=== PATIENT | female | born 1965 | race African-American/Black ===

== ENCOUNTER 2016-12-25 15:17 | Emergency (ER) | payer OTHER ==
--- NOTE | ~2016-12-25 | CR111 ---
[facility] A Service of [facility] RADIOLOGY TEXT RESULTS PATIENT: PITER DAVALOS LOCATION: SED : 63 UNIT #: [id number] AGE: [address]: GUILLERMO MCCOLLUM SEX: F ORDER DR: [id number] [place] [id number] E MR#: [id number] Acc #: [id number] NAME: PITER DAVALOS : 1965 SEX: F STUDY DATE/TIME: 12/25/2016 16:35 UNIT: SED ROOM: STUDY DESCRIPTION: CR Finger 2 View 3rd Rt Attending Physician: Guillermo Mccollum Aprn Ordering Physician: Guillermo Mccollum Aprn Primary Care Physician: Brittney Jamison M.D. MEDICAL IMAGING REPORT This report is preliminary unless electronic signature is present. EXAM Right third finger, 3 views INDICATIONS Finger injury today. Laceration. COMPARISON No comparisons. FINDINGS There is a fracture of the tuft of the distal phalanx of the third finger. Associated soft tissue swelling and laceration. IMPRESSION Fracture of the tuft of the distal phalanx of the third finger with associated soft tissue swelling and laceration. Dictated by... Ian Wagner M.D. THIS IS AN ELECTRONICALLY VERIFIED REPORT Ian Wagner M.D. at 12/27/2016 7:24 AM JOAQUIN/harish TD: 12/25/2016 22:51 JOB #: [id number] MEDICAL IMAGING REPORT Page 1 of 1
[~2016-12-25 15:17] MED LIST: AMLODIPINE BESY10 MG PO; APAP325 MG PO; ASPIRIN EC81 M1 PO; ASPIRIN81 M2 PO; ASPIRIN81 MG PO; BENTYL10 MG PO; BENZONATATE PO; CARVEDILOL25 MG PO; CARVEDILOL6.25 MG PO; CLARITHROMYCIN500 MG PO; CLOPIDOGREL BIS75 MG PO; COREG12.5 MG PO; COREG6.25 MG PO; DELTASONE20 MG PO; DOC-Q-LACE100 MG PO; DOCU SOFT100 M1 PO; HYDRALAZINE HCL25 MG PO; HYDRALAZINE HCL50 MG PO; HYDROCHLOROTHIA25 MG PO; ISOSORBIDE MONO20 M1 PO; K-DUR20 ME1 PO; LEVAQUIN PO; LIORESAL10 MG PO; LIPITOR20 MG PO; LIPITOR40 MG DOB; LISINOPRIL PO; LISINOPRIL10 MG PO; MEDROL DOSEPAK4 MG PO; METAXALONE800 MG PO; MORGIDOX100 MG PO; NAPROXEN PO; NITROGLYGERIN0.4 MG SL; NITROSTAT0.4 MG SL; NORVASC PO; NORVASC10 MG PO; PHENERGAN25 M1 PO; PRAVACHOL80 MG PO; PRAVASTATIN SOD40 MG PO; PRAVASTATIN SOD80 MG PO; PRILOSEC PO; PRILOSEC20 M1 PO; RANITIDINE HCL150 M1 PO; SERTRALINE HCL50 MG PO; SPIRONOLAC1 TAB 25/2 PO; SYMBICORT INH; ZESTRIL10 MG PO; ZESTRIL40 MG PO; ZITHROMAX500 MG PO
== END 2016-12-25 18:01 | disposition home or self-care (01) ==
LOC: SED 15:17
DX: S62.632A Displaced fracture of distal phalanx of right middle finger, initial encounter for closed fracture (principal); S67.192A Crushing injury of right middle finger, initial encounter; F17.210 Nicotine dependence, cigarettes, uncomplicated; Z23 Encounter for immunization; X58.XXXA Exposure to other specified factors, initial encounter; Y92.9 Unspecified place or not applicable
CPT/HCPCS: 29130; 73140; 90471; 90715; 99283

== ENCOUNTER 2017-01-04 23:27 | Inpatient (IN) | payer OTHER ==
--- NOTE | ~2017-01-04 | CO ---
Unit #: [id number] #: [id number] Patient: PITER VIDAL [id number] [address] [place], [place] [address] [id number] I MR#: [id number] NAME: PITER VIDAL ROOM: 304 Age: 51 Sex: F Admission Date: 01/05/2017 : 1965 Attending Physician: Jossie Marie M.D. Primary Care Physician: Brittney Jamison M.D. Consultation Date: 01/06/2017 CONSULTATION REPORT REASON FOR CONSULTATION Nonsustained ventricular tachycardia and poorly controlled hypertension. HISTORY OF PRESENT ILLNESS This is a 51-year-old female, who is known to our practice, sees Dr. Falcon, has a history of coronary artery disease, has a 95% to 99% stenosis in the first diagonal branch of the LAD and 75% stenosis in the left circumflex of the anterior marginal branch with ejection fraction of 55%; known hypertension; COPD; asthma; continues to smoke; has left bundle-branch block on EKG, who came into the emergency room with abdominal pain, nausea, and vomiting. According to information, she has been noncompliant with taking her medication. She gets some filled at [facility] and records show that she has not picked them up since October. No chest pain or pain in her neck, bilateral jaws, shoulders, arms, or elbow. Denies any cough, fever, or chills. In the emergency room, the patient's blood pressure was found to be 165/130, heart rate was 85, respirations 18, temperature 98.6. The patient was given some IV hydralazine and given some clonidine for hypertension. She was also given some GI cocktail. Dr. Puente with GI has seen the patient and he did an EGD. It shows severe erosive esophagitis and gastritis. We will put her back on her medication. The patient, during her hospitalization on her EKG, had some frequent premature ventricular complexes in addition to had an 8-beat run of nonsustained ventricular tachycardia. Also, her blood pressures have been fairly high throughout the hospitalization. So, Cardiology has been asked to assist with evaluation and management. The patient was restarted back on her beta-allyssa. She was reported to have been taking Coreg 50 mg p.o. b.i.d. and she was started back on the Coreg 6.25 mg p.o. b.i.d. PAST MEDICAL HISTORY 1. Coronary artery disease, 12/2013. Cardiac cath showed normal left main and RCA. First diagonal branch of the LAD showed 95% to 99% stenosis; left circumflex, anterior marginal branch revealed 75% stenosis. In 2014, 2D echo, LVEF of 55% with mild mitral regurgitation. 2. Hypertension. 3. Hyperlipidemia. 4. History of left bundle-branch block on EKG. 5. COPD and asthma. 6. Obesity. 7. Nicotine abuse. 8. Noncompliance with medication. Unit #: [id number] #: [id number] Patient: PITER VIDAL PAST SURGICAL HISTORY EGD in 09/2016 that showed gastritis. Also, right upper quadrant ultrasound and HIDA scan, which both were normal. MEDICATIONS Home medication is what the patient was discharged home and has not had her prescriptions filled since 10/2016 at [facility] and they are listed: Norvasc 10 mg one tablet p.o. daily, pravastatin 80 mg p.o. at bedtime, aspirin 81 mg p.o. daily, Nitrostat 0.4 mg sublingual p.r.n. for chest pain, omeprazole 20 mg p.o. daily, Bentyl 10 mg p.o. every 8 hours, hydrochlorothiazide 25 mg p.o. daily, hydralazine 50 mg p.o. b.i.d., potassium chloride 20 mEq p.o. daily, lisinopril 40 mg p.o. daily at bedtime, carvedilol 50 mg p.o. b.i.d., Colace 100 mg p.o. b.i.d. ALLERGIES Penicillin. SOCIAL HISTORY The patient lives with her family. She continues to smoke about half to a pack of cigarettes a day. No alcohol or illicit drug abuse. FAMILY HISTORY No known coronary artery disease in her immediate family members. REVIEW OF SYSTEMS See details in HPI. PHYSICAL EXAMINATION GENERAL: Ms. Vidal is a 51-year-old female, in no acute respiratory distress. She is awake, alert, and oriented. VITAL SIGNS: Blood pressure last reading today is 159/77, her heart rate is 77, respirations 18, temperature is 98.3, O2 saturations 96% on room air. NECK: Midline. No thyromegaly or lymphadenopathy. Normal carotid upstrokes. No jugular venous distention. HEART: S1 and S2. Regular rate and rhythm. No clicks, murmurs, or rubs. LUNGS: Diminished with a few scattered rhonchi in upper airway. ABDOMEN: Obese, soft, and nontender. EXTREMITIES: Pedal pulses are palpable. No pedal edema. DIAGNOSTIC STUDIES LABORATORY RESULTS: Glucose is 167, BUN 14, creatinine 0.8, eGFR is 84.8, sodium 138, potassium 3.7, chloride 104, CO2 of 27, calcium is 9.0, magnesium 1.9, total protein 7.3, albumin 3.8, bilirubin total 0.4, AST 11, ALT 20, alkaline phosphatase is 89. Amylase is 26 with lipase 27. WBCs 9.2 and on admission, it was 12.1; hemoglobin 13.3; hematocrit 40.2; and platelets are 220. Initial cardiac enzymes; CK-MB was less than 1.0, troponin was less than 0.05, CK-MB is less than 1.0, troponin less than 0.05. IMAGING STUDIES: Chest x-ray showed stable cardiomegaly, otherwise unremarkable. CT of abdomen and pelvis showed fat stranding adjacent to the descending duodenum and transverse duodenum as well as the head and the uncinate process of the pancreas could be consistent with duodenitis versus pancreatitis, and there is a 1.7 cm density in the anterior right lower lobe, just adjacent to the major fissure and it is likely rounded Unit #: [id number] #: [id number] Patient: PITER VIDAL atelectasis. Followup CT is recommended. Cardiomegaly is noted. Hepatomegaly is noted and fluid distention of the bladder noted. CARDIOVASCULAR STUDIES: EKG shows sinus tachycardia with a first-degree AV block, left bundle-branch block, left atrial abnormality, poor R-wave progression, left ventricular hypertrophy. IMPRESSION 1. Abdominal pain, nausea, vomiting, status post esophagogastroduodenoscopy. Severe esophagitis and gastritis. 2. Nonsustained ventricular tachycardia. 3. Coronary artery disease. See details up in HPI. Last cardiac cath in 12/2013. 4. Poorly controlled hypertension, noncompliance with medication. 5. Hyperlipidemia. 6. History of left bundle-branch block on EKG. 7. Chronic obstructive pulmonary disease and asthma. 8. Obesity. 9. Nicotine abuse. 10. Noncompliance with medication. PLAN 1. Cardiology consulted because the patient had an 8-beat run of nonsustained ventricular tachycardia. 2. Yesterday, the patient's potassium was low and she is on potassium supplement. Magnesium is a little low today, is receiving IV magnesium, is on the potassium and magnesium protocol. 3. When the patient came in, her blood pressure was high and that she was restarted back on one of the medications carvedilol at a lower dose to initiate the beta-allyssa back on her regimen. So, we will increase the dose from 6.25 mg to 12.5 mg p.o. b.i.d. that will also help blood pressure and control the ventricular arrhythmias. 4. On exam, there are no signs or symptoms of acute congestive heart failure or unstable angina. Cardiac enzymes were negative. EKG does show a left bundle-branch block that is not new. 5. Encourage the patient to completely quit smoking and be compliant with her blood pressure medication. The patient is on also, in addition the carvedilol and hydralazine, lisinopril, Lipitor, aspirin and potassium supplements, and is on SCDs for DVT prophylaxis. 6. Further recommendations pending per Dr. Nj. Thank you very much for allowing us to assist in the care. Dictated by... Luis Alberto Cornell/lyubov TD: 01/06/2017 17:00 JOB #: [id number] CC: [facility] Cardiology [facility] Unit #: [id number] #: [id number] Patient: PITER VIDAL CONSULTATION REPORT Page 1 of 1 X Karmen Jo APRN CONSULTATION REPORT
--- NOTE | ~2017-01-04 | EKG ---
PATIENT: PITER DAVALOS UNIT #: [id number] Ventricular Rate: 99 BPM Atrial Rate: 99 BPM P-R Interval: 148 ms QRS Duration: 156 ms Q-T Interval: 424 ms QTC Calculation(Bezet): 544 ms P [place]: 59 degrees Calculated R [place]: -2 degrees Calculated T [place]: 131 degrees Diagnosis Line: Normal sinus rhythm Diagnosis Line: Possible Left atrial enlargement Diagnosis Line: Left bundle branch block Diagnosis Line: Abnormal ECG Diagnosis Line: No previous ECGs available Diagnosis Line: Confirmed by ONI VILLARREAL MD ([id number]) on Diagnosis Line: 01/05/2017 1:37:08 PM INTERPRETING MD: CHERELEL TRAN
--- NOTE | ~2017-01-04 | CT4 ---
[facility] A Service of [facility] RADIOLOGY TEXT RESULTS PATIENT: PITER DAVALOS LOCATION: C3A 304-01 : [birth year] UNIT #: [id number] AGE: [address]: Neisha Rutledge MD SEX: F ORDER DR: [id number] [facility] [address]. [place], [place] [address] [id number] E MR#: [id number] Acc #: [id number] NAME: PITER DAVALOS : 1965 SEX: F STUDY DATE/TIME: 01/05/2017 6:12 UNIT: ULI ROOM: STUDY DESCRIPTION: CT Abd and Pelv Wo Cont Attending Physician: Mihir Negrete M.D. Ordering Physician: Beverly Westfall M.D. Primary Care Physician: Brittney Jamison M.D. MEDICAL IMAGING REPORT This report is preliminary unless electronic signature is present EXAM CT abdomen and pelvis without IV contrast COMPARISON November 20, 2015 and October 17, 2013. INDICATION 51-year-old female with generalized abdominal pain, nausea, emesis for 2 days. History of cholelithiasis. TECHNIQUE This CT examination was performed with one or more of the following radiation dose reduction techniques: automatic exposure control, adjustment of mA and/or kV according to patient size, and iterative reconstruction. FINDINGS Axial CT imaging of the abdomen and pelvis was performed without IV contrast. Lack of IV contrast limits evaluation of adenopathy, vasculature and viscera. Small to moderate fat-containing umbilical hernia. Mild degenerative change of the pubic symphysis. No acute fractures or suspicious osseous lesions. Questionable enlarging nodular density in the anterior right lower lobe abutting the major fissure. This has somewhat of a ground-glass characteristic and its evaluation is mildly limited by motion. This may represent an area of round atelectasis and measures up to 1.7 cm. Bczh-cj-sofcirem cardiomegaly. Unenhanced liver is unremarkable aside from mild enlargement of hepatic length of 16.2 cm. The gallbladder, unenhanced pancreas, spleen, adrenal glands and kidneys are unremarkable. There is no hydronephrosis or hydroureter. No renal or ureteral calculus. There is fluid distension of the urinary bladder. Uterus appears unremarkable. No adnexal masses. No evidence of bowel obstruction. Appendix is normal. No free fluid or STS. [facility] A Service of [facility] RADIOLOGY TEXT RESULTS PATIENT: PITER DAVALOS LOCATION: C3A 304-01 : [birth year] UNIT #: [id number] AGE: [address]: Neisha Rutledge MD SEX: F ORDER DR: pneumoperitoneum. Abdominal aorta is normal in caliber. No adenopathy. There is some very mild apparent fat stranding adjacent to the head and uncinate process of the pancreas which was not appreciated previously and could reflect a mild acute pancreatitis or alternatively inflammatory change of the duodenum. Neoplastic process cannot entirely be excluded. There is a stable subcentimeter peripancreatic lymph node adjacent to the pancreatic head. IMPRESSION 1. Mild apparent fat stranding adjacent to the descending duodenum and transverse duodenum as well as the head and uncinate process of the pancreas. Differential diagnosis includes possible early acute pancreatitis and/or duodenitis. Clinical correlation recommended. Given the subtle infiltrate nature, neoplastic process cannot be excluded. Consider imaging followup in 3-6 months to document stability. This would preferably performed with IV contrast. 2. Patient appears to be developing a rounded 1.7 cm density in the anterior right lower lobe adjacent to the major fissure. This is not well evaluated due to motion and could reflect rounded atelectasis but neoplastic process again cannot be excluded. CT chest followup without IV contrast is recommended in 3 months to document stability or resolution. 3. Mild cardiomegaly. 4. Mild hepatomegaly. No evidence of cholelithiasis or acute cholecystitis on this exam. 5. Fluid distension of the urinary bladder. Dictated by... Edis Spencer M.D. THIS IS AN ELECTRONICALLY VERIFIED REPORT Edis Spencer M.D. at 01/11/2017 2:29 PM Jamar TD: 01/05/2017 07:45 JOB #: [id number] MEDICAL IMAGING REPORT Page 1 of 1 COPY
--- NOTE | ~2017-01-04 | CR72 ---
[facility] A Service of [facility] RADIOLOGY TEXT RESULTS PATIENT: PITER DAVALOS LOCATION: [facility] : 63 UNIT #: [id number] AGE: [address]: Beverly Westfall MD SEX: F ORDER DR: [id number] [facility] [address] [place], [place] [address] [id number] P MR#: [id number] Acc #: [id number] NAME: PITER DAVALOS : 1965 SEX: F STUDY DATE/TIME: 01/05/2017 2:57 UNIT: [facility] ROOM: STUDY DESCRIPTION: CR Chest Single View Portable Attending Physician: Beverly Westfall M.D. Ordering Physician: Beverly Westfall M.D. Primary Care Physician: Brittney Jamison M.D. MEDICAL IMAGING REPORT This report is preliminary unless electronic signature is present EXAM Single view chest INDICATION Chest pain for 2 days. FINDINGS Single portable AP view chest compared to 07/26/2016. Heart is mildly enlarged. Central pulmonary vasculature is within normal limits. No focal consolidation. No pleural effusion. IMPRESSION Stable cardiomegaly. Dictated by... Atif Dillard M.D. THIS IS AN ELECTRONICALLY VERIFIED REPORT Atif Dillard M.D. at 01/05/2017 4:31 AM RISSA/charlotte TD: 01/05/2017 04:13 JOB #: [id number] MEDICAL IMAGING REPORT Page 1 of 1 COPY
--- NOTE | ~2017-01-04 | OR ---
Unit #: [id number] #: [id number] Patient: PITER DAVALOS [id number] [address] [address] [id number] I MR#: [id number] NAME: PITER DAVALOS ROOM: 304 Date of Procedure: 01/05/2017 Admission Date: 01/05/2017 Surgeon: Luis Puente M.D. : 1965 Attending Physician: Jossie Marie M.D. Primary Care Physician: Brittney Jamison M.D. OPERATIVE REPORT PREOPERATIVE DIAGNOSES The patient presented with history of epigastric pain for 2 days along with nausea. In addition, she has a background history of diabetes, hypertension, and hyperlipidemia. The patient was found to have hypertensive emergency on admission. PROCEDURES PERFORMED Upper gastrointestinal endoscopy and biopsy. POSTOPERATIVE DIAGNOSES 1. The patient had grade 1 distal erosive esophagitis with erosions in Z-line and distal esophagus. 2. Prepyloric antral gastritis. This was in the form of diffuse erosive gastritis in the antral area. 3. Rest of examination up to third part of duodenum was normal. Specifically, the duodenal bulb as well as second and third part of duodenum were very carefully examined and appeared completely normal. This is in view of the fact the patient had changes of duodenitis on a CAT scan. RECOMMENDATIONS It will be pertinent to investigate the pancreas with a repeat imaging study in 3 to 4 months' time. The patient does not have any evidence of duodenal lesion. She is being started on pantoprazole 40 mg p.o. b.i.d., which can be reduced to once a day in a couple of days. SEDATION USED MAC. DESCRIPTION OF PROCEDURE Following detailed explanations of potential risks and complications of an upper endoscopy, namely perforation, bleeding, and complications related to sedation, the patient was brought to GI lab and laid in the left lateral decubitus position. Lubricated tip of the Olympus video upper endoscope was passed through bite block into the proximal esophagus under direct vision. The entire esophageal mucosa was examined. The patient was noted to have grade 1 distal erosive esophagitis. The scope was then advanced into the gastric cavity and the latter was insufflated. Mucosa of the fundus, body, and antrum examined. The patient was noted to have diffuse prepyloric antral erosions and erythema indicating antral gastritis. Pylorus was intubated with visualization of the normal duodenal bulb and second and third part of duodenum. Careful attention Unit #: [id number] #: [id number] Patient: PITER DAVALOS was focused specifically descending duodenum as well as fourth part of duodenum, which were normal. Upon withdrawal and retroflexion, incisura, cardia, and greater curve examined and biopsy obtained from the antrum for CLOtest. The scope was then withdrawn in the distal esophagus. The entire esophageal mucosa was examined all the way up to pharynx, no additional findings noted. The patient tolerated the procedure without any postprocedure complications. Dictated by... Flora Lockett/lyubov TD: 01/05/2017 23:05 JOB #: [id number] CC: Flora Ojeda M.D. OPERATIVE REPORT Page 1 of 1 X Luis Puente MD X PROCEDURE OPERATIVE NOTE
--- NOTE | ~2017-01-04 | HP ---
Unit #: [id number] #: [id number] Patient: PITER VIDAL [id number] [address] [place], [place] [address] [id number] I MR#: [id number] NAME: PITER VIDAL ROOM: 47439 Age: 51 Sex: F Admission Date: 01/05/2017 : 1965 Attending Physician: Jossie Marie M.D. Primary Care Physician: Brittney Jamison M.D. HISTORY AND PHYSICAL REVISED REPORT CHIEF COMPLAINT Abdominal pain. HISTORY OF PRESENT ILLNESS Ms. Vidal is a 51-year-old Telugu, Latvian-speaking, female who presents to the ER for above. I will note, history taking is extremely limited given the patient has received several sedating medications here in the ER and will not wake up much to provide history. Thus, history is taken after discussion with ER physician and ER notes. Patient presented to this emergency department last night with complaints of abdominal pain of approximately 2 days' duration. However, ER notes indicate that patient has chronic abdominal pain, and she has been admitted to this facility in the past for abdominal pain, most recently in September of 2016. She was complaining of epigastric and right upper quadrant pain with associated nausea. Pain was described as a burning; however, there have been no reported episodes of vomiting, fever, diarrhea, back pain or loss of appetite. It was not exacerbated or relieved by any notable factors. Patient underwent CT scan of her abdomen and pelvis revealing changes of duodenitis, and chest x-ray was unremarkable. There is a questionable right lower lobe density. Lab work was essentially unremarkable. During course of evaluation, patient also developed significant hypertension with blood pressures running in the 200s systolic, and she progressively became tachycardic throughout evaluation. Patient has been given a liter of normal saline, Zofran, Protonix, GI cocktail, hydralazine twice, clonidine, Pepcid, Benadryl, morphine and Phenergan and is now very sedated. She is being admitted due to her tachycardia and hypertension. PAST MEDICAL HISTORY 1. Gastritis. Patient underwent EGD in September of 2016 with gastritis. During that hospitalization, she also had right upper quadrant ultrasound and HIDA scan, both of which were normal. 2. Coronary artery disease. Patient had heart catheterization in 2013 revealing 90% to 95% stenosis in the LAD and 70% stenosis in the posterior branch of the circumflex. 3. Hypertension. 4. Hyperlipidemia. 5. Chronic left bundle branch block. 6. Tobaccoism. 7. Chronic hypoxic respiratory failure, maintained on 2 liters of oxygen per nasal cannula continuously. Unit #: [id number] #: [id number] Patient: PITER VIDAL 8. Asthma. 9. Obesity. 10. COPD. 11. Diabetes mellitus type 2. PAST SURGICAL HISTORY None. She did have EGD as outlined above. ALLERGIES Penicillin. HOME MEDICATIONS Home medications, per best of my reconciliation at this time, include discharge medications of Norvasc 10 mg daily, pravastatin 80 mg at bedtime, aspirin 81 mg daily, nitroglycerin 0.4 mg sublingual p.r.n. chest pain, omeprazole 20 mg daily, Bentyl 10 mg q.8 hours, Hydrochlorothiazide 25 mg p.o. daily, hydralazine 50 mg b.i.d., potassium chloride 20 mEq p.o. daily, Zestril 40 mg daily, Coreg 50 mg b.i.d., Colace 100 mg b.i.d. However, I will note this med/rec is from medications filled at [facility] in September of 2016, and patient has not filled any meds since October of 2016 at [facility]. FAMILY HISTORY Family history is reportedly negative, and patient is unable to wake up to answer of there is any additional family history. SOCIAL HISTORY Patient continues to smoke, I believe, 1 pack of cigarettes per day. She denied alcohol use in the past. I believe she is ambulatory at baseline and denied illicit drug use in the past, as well. REVIEW OF SYSTEMS Unobtainable given the patient will simply open her eyes and fall back to sleep. PHYSICAL EXAMINATION VITAL SIGNS: Temperature 98.5, blood pressure currently 157/90, pulse rate 110, respiratory rate 22, oxygen saturation 94% on 2 liters per nasal cannula. GENERAL: The patient does open her eyes when aroused to sternal rub or with pain but will not answer questions. HEENT: Pupils are equally round and reactive to light bilaterally. Anicteric sclera. No conjunctival pallor. I was, really, unable to perform an oral exam, but mucous membranes at least appear moist. NECK: Supple. No lymphadenopathy. No thyromegaly. No JVD. Increased neck diameter is noted. HEART: Regular rate and rhythm without murmur, rub or gallop. LUNGS: Diminished bilaterally. I cannot appreciate any wheezes, rhonchi or crackles, but examination, again, is limited. ABDOMEN: Abdomen is obese. It is soft. It is nontender currently. Positive bowel sounds. No appreciable hepatomegaly. EXTREMITIES: No cyanosis, clubbing or edema. Pedal pulses 2/4. SKIN: Warm, moist without rash. NEUROLOGIC: When patient did arouse, at least grossly her cranial nerves II-XII appeared intact. She did move all 4 extremities while I was trying to awaken, and Babinski is negative. Deep tendon reflexes are 2/4 in upper and lower extremities bilaterally. Gait and cerebellar function were not assessed. Unit #: [id number] #: [id number] Patient: PITER VIDAL MUSCULOSKELETAL: No significant joint abnormality noted; i.e., no erythema, no joint hypertrophy. PSYCHIATRIC: Unable to assess. GENITOURINARY: Alvarenga catheter is in place. DIAGNOSTIC STUDIES LABORATORY: Blood work done in the emergency department reveals a white blood cell count of 12.1, hemoglobin 14.1, platelet count 247,000. CMP reveals a sodium of 134, potassium 3.2, chloride 101, bicarb 26, BUN 13, creatinine 1, glucose 152. LFTs are all normal. Amylase and lipase are also normal. Urinalysis revealed 3+ protein, 5-10 WBCs, 1+ bacteria but occasional squamous cells. Troponin has been negative x2. IMAGING: Chest x-ray reveals cardiomegaly but no other acute findings. CT scan of the abdomen and pelvis without contrast - Fat stranding adjacent to the descending duodenum and transverse duodenum, as well as the head and uncinate process of the pancreas. This is consistent with duodenitis versus pancreatitis. There is a round 1.7 cm density in the anterior right lower lobe adjacent to the major fissure and is most likely rounded atelectasis. Followup CT of the chest recommended. Cardiomegaly is noted. Hepatomegaly is noted, as well, and fluid distension of the bladder is noted. CARDIOVASCULAR: EKG reveals significant left bundle branch block but is otherwise normal sinus rhythm. PVCs are noted. ASSESSMENT 1. Hypertensive urgency with questionable compliance with antihypertensive medication. 2. SIRS secondary to number 3. 3. Duodenitis with prior history of significant gastritis with questionable compliance with PPI therapy. 4. Hypokalemia. 5. Questionable urinary tract infection. 6. Chronic hypoxic respiratory failure, maintained on 2 liters of oxygen per nasal cannula continuously. 7. Known coronary artery disease, followed by Dr. [place]. 8. COPD. 9. Hyperlipidemia. 10. Tobaccoism. 11. Right lower lobe nodule, question atelectasis versus mass. 12. Obesity. 13. Diabetes mellitus type 2. The patient's hemoglobin A1c was elevated at 6.7 in September 2016. Please note, we will add Accu-Cheks and obtain diabetic education. PLAN 1. Will admit patient to inpatient status at intermediate level. 2. In regard to the patient's hypertension, I am going to reinitiate hydralazine 50 mg b.i.d., Coreg 6.25 mg b.i.d., Norvasc 10 mg daily and follow blood pressures. Will also provide hydralazine on a p.r.n. basis. 3. In regard to the patient's duodenitis, will place her on Protonix 40 mg p.o. b.i.d. I will have Dr. Puente reevaluate the patient, given she may require repeat endoscopy. I do not think this is consistent with pancreatitis, given normal lipase levels. However, I will recheck a lipase in the morning. Unit #: [id number] #: [id number] Patient: PITER VIDAL 4. Will replace potassium and check magnesium off blood in the lab. 5. Continue oxygen and titrate for sats greater than or equal to 92%. 6. Will continue home medications for coronary artery disease. This does not appear to be cardiac in origin. 7. Will reinitiate statin therapy. 8. I will follow up urine culture. I do not feel that she likely has underlying urinary tract infection and oral antibiotics can be initiated if culture is positive. 9. In regard to the patient's right lower lobe nodule, I recommend repeat CT as an outpatient in perhaps 3-6 months. However, she is at increased risk of malignancy given her tobacco use, and CT scan of the chest can be done after discussion with the patient when she is more awake. 10. Will crisis counselor regarding tobacco use when awake. ORIGINAL JOB #[id number] Dictated by Jossie Marie M.D. DELBERT/arely TD: 01/05/2017 09:24 JOB #: [id number] HISTORY AND PHYSICAL Page 1 of 1 X Jossie Marie MD X HISTORY AND PHYSICAL
--- NOTE | ~2017-01-04 | CO ---
Unit #: [id number] #: [id number] Patient: PITER VIDAL [id number] [address] [address] [id number] I MR#: [id number] NAME: PITER VIDAL ROOM: 304 Age: 51 Sex: F Admission Date: 01/05/2017 : 1965 Attending Physician: Jossie Marie M.D. Primary Care Physician: Brittney Jamison M.D. Consultation Date: 01/05/2017 CONSULTATION REPORT PRIMARY CARE PHYSICIAN Brittney Jamison M.D. REASON FOR CONSULTATION Duodenitis and upper abdominal epigastric pain. HISTORY OF PRESENT ILLNESS Ms. Vidal is a 51-year-old woman of [place]ian origin, who presents with a history of hypertensive emergency along with moderately severe epigastric pain for the past 2 days along with nausea and some vomiting. The patient says that the pain is quite intense and continuous. Upon admission, CT scan of the abdomen shows changes of duodenitis and possibly in relation to pancreatic and descending duodenum in addition to major papilla and ampullary area. PAST MEDICAL HISTORY Significant for history of hypertension, hyperlipidemia, chronic hypoxic respiratory failure maintained on 2 L nasal cannula, history of tobacco abuse, coronary artery disease. The patient has been evaluated for a possible gallbladder disease and both her ultrasound and HIDA scan have been normal. She also has history of obesity, asthma, COPD, and type 2 diabetes. PREVIOUS SURGERIES No previous abdominal surgeries. ALLERGIES Penicillin. HOME MEDICATIONS Reviewed and include the following: Norvasc, pravastatin, aspirin, nitroglycerin, omeprazole 20 mg p.o. daily, Bentyl p.r.n. abdominal pain, hydrochlorothiazide, hydralazine, potassium chloride, Zestril, Coreg, Colace. FAMILY HISTORY None of colon, pancreatic cancer, or liver disease. SOCIAL HISTORY She continues to smoke a pack of cigarette daily. Does not use any alcohol. Ambulatory. REVIEW OF SYSTEMS Detailed review of organ systems does not reveal any recent weight loss. Unit #: [id number] #: [id number] Patient: PITER VIDAL No history of fever, chills, or rigors. No history of headache, seizure, chest pain, or syncope. No history of cough, expectoration, or hemoptysis. No history of dysuria, hematuria, or pyuria. No history of focal seizures or extremity weakness. Rest of the review of organ systems is unremarkable. PHYSICAL EXAMINATION GENERAL: She is alert and oriented, and appears to be in some pain. VITAL SIGNS: Stable with a temperature of 99.7, pulse is 107 per minute and regular, respiratory rate is 20, blood pressure is 150/100, it was 182/105 in the morning and as high as 200/110 before that. As high as 215/122 before that. HEENT: She has no pallor, icterus, lymphadenopathy, or peripheral edema. CARDIOVASCULAR: Reveal normal heart sounds. No murmurs on auscultation. LUNGS: Reveal normal breath sounds with good air entry. ABDOMEN: Soft, nontender. Liver and spleen are not palpable. Bowel sounds normal. DIAGNOSTIC STUDIES LABORATORY RESULTS: Shows normal CBC and serum chemistry. The amylase and lipase are normal and LFTs are also normal. CLINICAL IMPRESSION The changes on the CT scan are may be related to underlying duodenal ulcer. Diagnostic endoscopy is in order and be scheduled little later today. The pros and cons of procedure, potential risks, and complications were discussed with the patient and she was reassured. Thank you for asking me to see this pleasant woman. I appreciate the consult. Dictated by... Flora Lockett/lyubov TD: 01/06/2017 01:32 JOB #: [id number] CC: Flora Ojeda M.D. CONSULTATION REPORT Page 1 of 1 X Luis Puente MD X CONSULTATION REPORT
--- NOTE | ~2017-01-04 | A ---
[facility] Nutrition Therapy DATE: 01/06/17 Patient: PITER DAVALOS Physician: SCARLETT Address: [address] [place] [address] Room/Bed: [address] [place] [address], Zip: [place] [address] Admit Date: 01/05/17 Date of : [birth year] Height: 5 0 Weight: 187 85 NUTRITIONAL ASSESSMENT: REASON: CONSULT FOR DM DIET EDUCATION PMH: DM, CAD, gastritis, HTN, HLD, chronic hypoxic respiratory failure, COPD, obesity Anthropometrics: Ht: 60" Wt: 85 kg BMI: 36.6 Assessment: Chart reviewed, events noted. RD spoke with the pt at bedside. There was certainly a language barrier, as the pt's first language is Georgian. Pt does speak some togolese. RD was able to explain the importance of balanced meals, consuming protein with each meal and eating more than one meal per day. Pt states that she does not like fruits or vegetables, and does not seem likely to comply with diet strategies discussed. Pt would certainly benefit from further nutritional counseling, with an business information manager if possible. Recommendations: 1. Pt to follow a heart healthy/ consistent carbohydrate diet as instructed by RD. 2. Pt requires further diet education, as there is certainly a learning barrier due to language. Recommend follow up diet education with an business information manager if possible. RD will follow up per protocol. Respectfully, LEANDRA BROOKE RD, LD Food and Nutrition[facility] Services [facility] cc: client file
--- NOTE | ~2017-01-04 | DS ---
Unit #: [id number] #: [id number] Patient: PITER DAVALOS [id number] [address] [address] [id number] I MR#: [id number] NAME: PITER DAVALOS ROOM: 304 Age: 51 Sex: F Admission Date: 01/05/2017 : 1965 Discharge Date: 01/07/2017 Attending Physician: Jossie Marie M.D. Primary Care Physician: Brittney Jamison M.D. DISCHARGE SUMMARY FINAL DIAGNOSES 1. Abdominal pain. 2. Hypertensive urgency. SECONDARY DIAGNOSES 1. Hypertension. 2. Chronic obstructive pulmonary disease. 3. Left bundle branch block. 4. Nicotine abuse. 5. History of coronary artery disease with cardiac catheterization in 2013. CONSULTS 1. Cardiology, Dr. Nj. 2. GI, Dr. Luis Puente. PROCEDURES She had an EGD, which showed gastroesophagitis and gastritis. HOSPITAL COURSE A 51-year-old [place] lady who basically presented with abdominal pain. She was seen and evaluated in the emergency room. Blood pressure was elevated. She was already on Protonix twice daily. She was seen by GI, and she had a scope, which did reveal findings of esophagitis. Dr. Luis Puente felt that CT scan findings in the duodenum were probably artifact. While the patient was being planned for discharge, she did have some runs of V tach. She was seen by cardiology who increased her Coreg to 12.5 p.o. b.i.d. Blood pressures really were markedly elevated initially on admission, and with making some adjustments, blood pressures have trended downward. Blood pressure today, the day of discharge, is 157/93. She is evaluated, suitable and stable for discharge for outpatient followup with her PCP in the next 3-5 days. On the day of discharge she is still nauseous. She did receive Zofran. Will give her some Phenergan and some Zofran orally to go home. She is evaluated and suitable and stable for discharge. Will be discharged in stable condition. MEDICATIONS ON DISCHARGE 1. Bentyl 10 mg p.o. t.i.d. for bowel cramps. 2. Coreg 25 mg p.o. b.i.d. 3. Colace 100 mg p.o. b.i.d. 4. Hydrochlorothiazide was discontinued. Unit #: [id number] #: [id number] Patient: PITER DAVALOS 5. Lipitor 20 mg at bedtime. 6. Nitroglycerin sublingual 0.4 mg as needed for chest pain. 7. Hydralazine 50 mg p.o. b.i.d. 8. Zestril 40 mg p.o. daily. 9. Aspirin 81 mg p.o. daily. 10. Omeprazole 40 mg p.o. b.i.d. 11. Potassium 20 mEq p.o. daily. DISCHARGE CONDITION She will be discharged in stable condition. NOTE: Time spent coordinating discharge was about 33 minutes. Dictated by... Flora Gerardo/marcus TD: 01/07/2017 13:35 JOB #: [id number] DISCHARGE SUMMARY Page 1 of 1 X Idania Flores MD X DISCHARGE SUMMARY
--- NOTE | ~2017-01-04 | EKG ---
PATIENT: PITER DAVALOS UNIT #: [id number] Ventricular Rate: 128 BPM Atrial Rate: 128 BPM P-R Interval: 232 ms QRS Duration: 84 ms Q-T Interval: 244 ms QTC Calculation(Bezet): 356 ms Calculated R Malmo: 38 degrees Calculated T Malmo: -92 degrees Diagnosis Line: Sinus tachycardia with 1st degree A-V block with Diagnosis Line: frequent Premature ventricular complexes Diagnosis Line: Left ventricular hypertrophy with repolarization Diagnosis Line: abnormality Diagnosis Line: Abnormal ECG Diagnosis Line: When compared with ECG of 29-SEP-2016 01:58, Diagnosis Line: Premature ventricular complexes are now Present Diagnosis Line: WA interval has increased Diagnosis Line: Vent. rate has increased BY 47 BPM Diagnosis Line: Left bundle branch block is no longer Present Diagnosis Line: Confirmed by ONI VILLARREAL MD ([id number]) on Diagnosis Line: 01/05/2017 1:37:24 PM INTERPRETING MD: CHERELLE TRAN
[2017-01-05 00:58] LABS: BASOPHIL# 0.1 X10e3 (0-0.3); BASOPHIL% 0.6 % (0-2.5); EOSINOPHIL# 0.1 X10e3 (0-0.7); EOSINOPHIL% 1.1 % (0.0-7.0); HEMATOCRIT 41.7 % (35.0-45.0); HEMOGLOBIN 14.1 gm/dL (12.0-16.0); LYMPHOCYTE# 3.4 X10e3 (1.0-3.5); LYMPHOCYTE% 27.9 % (17.0-45.0); MEAN CELL VOLUME 83.4 FL (83-96); MEAN CORPUSCULAR HEMOGLOBIN 28.2 PG (28-34); MEAN CORPUSCULAR HGB CONC 33.8 g/dL (30-36); MEAN PLATELET VOLUME 9.3 FL (6.5-11.5); MONOCYTE# 0.6 X10e3 (0-1.0); MONOCYTE% 5.1 % (3.0-12.0); NEUTROPHIL# 7.9 X10e3 (1.5-7.1); NEUTROPHIL% 65.3 % (40-75); PLATELET COUNT 247 X10e3 (140-420); RED BLOOD COUNT 5.01 X10e (3.90-5.30); RED CELL DISTRIBUTION WIDTH 14.1 % (11.0-15.5); WHITE BLOOD COUNT 12.1 X10e3 (4.0-10.5)
[2017-01-05 01:02] LABS: DIFF IND NO
[2017-01-05 01:23] LABS: ALBUMIN SERUM 3.8 g/dL (3.5-5.0); ALKALINE PHOSPHATASE 89 U/L (32-92); ALT (SGPT) 20 U/L (10-40); AMYLASE 26 U/L (0-46); AST (SGOT) 11 U/L (10-42); BILIRUBIN,TOTAL 0.4 mg/dL (0.2-2.0); BLOOD UREA NITROGEN 13 mg/dL (9-23); CALCIUM SERUM 9.6 mg/dL (8.4-10.2); CARBON DIOXIDE 26 mmol/L (22-31); CHLORIDE 101 mmol/L (100-111); GLOM FILT RATE Estimated 64.8 mL/min (>60); GLUCOSE FASTING 152 mg/dL (70-110); LIPASE 39 U/L (22-51); POTASSIUM 3.2 mmol/L (3.5-5.1); PROTEIN TOTAL SERUM 7.3 g/dL (6.0-8.3); SODIUM 134 mmol/L (135-145)
[2017-01-05 01:25] LABS: BILIRUBIN, DIRECT <0.1 mg/dL (0.0-0.2); BILIRUBIN,INDIRECT 0.3 mg/dL (0.0-0.9)
[2017-01-05 03:25] LABS: URINE SOURCE CLEAN CATCH
[2017-01-05 03:28] LABS: URINE APPEARANCE CLEAR; URINE BILIRUBIN NEG (NEG); URINE BLOOD NEG (NEG); URINE COLOR YELLOW; URINE GLUCOSE NEG (NEG); URINE KETONE NEG (NEG); URINE LEUKOCYTE ESTERASE NEG (NEG); URINE NITRATE NEG (NEG); URINE PROTEIN 3+ (NEG); URINE SPECIFIC GRAVITY 1.019 (1.003-1.035)
[2017-01-05 03:31] LABS: CULTURE INDICATED? YES; U HYALINE CASTS AUWI 0-2 /[LPF]; URBCS1 AUWI 0-2 /[HPF] (0-2); URINE BACTERIA AUWI 1+ (NEGATIVE); URINE SQUAMOUS EPITHELIAL CELL OCC /[HPF]
[2017-01-05 04:07] LABS: POC - CKMB <1.0 ng/mL (0.0-7.9); POC - TROPONIN <0.05 ng/mL (<=0.05)
[2017-01-05 05:20] LABS: POC - CKMB <1.0 ng/mL (0.0-7.9); POC - TROPONIN <0.05 ng/mL (<=0.05)
[2017-01-05] MEDS ORDERED: OMEPRAZOLE20 M2 PO (08:28)
[2017-01-05] MEDS ORDERED: HYDROCHLOROTHIA25 MG PO (08:29)
[2017-01-05] MEDS ORDERED: HYDRALAZINE HCL50 MG PO (08:29)
[2017-01-05] MEDS ORDERED: BENTYL10 MG PO (08:29)
[2017-01-05] MEDS ORDERED: K-DUR20 ME1 PO (08:30)
[2017-01-05] MEDS ORDERED: ZESTRIL40 MG PO (08:30)
[2017-01-05] MEDS ORDERED: CARVEDILOL25 MG PO (08:30)
[2017-01-05] MEDS ORDERED: NITROGLYGERIN0.4 MG SL (08:31)
[2017-01-05] MEDS ORDERED: DOCUSATE SODIU100 MG PO (08:31)
[2017-01-05 09:30] LABS: BASOPHIL# 0.1 X10e3 (0-0.3); BASOPHIL% 0.6 % (0-2.5); EOSINOPHIL% 0.2 % (0.0-7.0); HEMATOCRIT 42.7 % (35.0-45.0); HEMOGLOBIN 14.1 gm/dL (12.0-16.0); LYMPHOCYTE# 1.9 X10e3 (1.0-3.5); LYMPHOCYTE% 14.3 % (17.0-45.0); MEAN CELL VOLUME 84.7 FL (83-96); MEAN CORPUSCULAR HEMOGLOBIN 27.9 PG (28-34); MEAN PLATELET VOLUME 9.6 FL (6.5-11.5); MONOCYTE# 0.5 X10e3 (0-1.0); NEUTROPHIL# 10.8 X10e3 (1.5-7.1); NEUTROPHIL% 80.9 % (40-75); PLATELET COUNT 263 X10e3 (140-420); RED BLOOD COUNT 5.04 X10e (3.90-5.30); RED CELL DISTRIBUTION WIDTH 14.2 % (11.0-15.5); WHITE BLOOD COUNT 13.4 X10e3 (4.0-10.5)
[2017-01-05 09:32] LABS: DIFF IND NO
[2017-01-05 09:47] LABS: CALCIUM SERUM 9.3 mg/dL (8.4-10.2); CREATININE SERUM 0.8 mg/dL (0.6-1.4); GLOM FILT RATE Estimated 84.8 mL/min (>60); POTASSIUM 3.8 mmol/L (3.5-5.1)
[2017-01-06 05:59] LABS: BASOPHIL# 0.1 X10e3 (0-0.3); BASOPHIL% 0.8 % (0-2.5); EOSINOPHIL# 0.1 X10e3 (0-0.7); EOSINOPHIL% 1.2 % (0.0-7.0); HEMATOCRIT 40.2 % (35.0-45.0); HEMOGLOBIN 13.3 gm/dL (12.0-16.0); LYMPHOCYTE# 2.9 X10e3 (1.0-3.5); LYMPHOCYTE% 31.5 % (17.0-45.0); MEAN PLATELET VOLUME 9.4 FL (6.5-11.5); MONOCYTE# 0.6 X10e3 (0-1.0); MONOCYTE% 6.9 % (3.0-12.0); NEUTROPHIL# 5.5 X10e3 (1.5-7.1); NEUTROPHIL% 59.6 % (40-75); PLATELET COUNT 220 X10e3 (140-420); RED BLOOD COUNT 4.73 X10e (3.90-5.30); RED CELL DISTRIBUTION WIDTH 14.3 % (11.0-15.5); WHITE BLOOD COUNT 9.2 X10e3 (4.0-10.5)
[2017-01-06 06:01] LABS: DIFF IND NO
[2017-01-06 06:41] LABS: BUN/CREATININE RATIO 17.5; CREATININE SERUM 0.8 mg/dL (0.6-1.4); GLOM FILT RATE Estimated 84.8 mL/min (>60); POTASSIUM 3.7 mmol/L (3.5-5.1)
[2017-01-08] MEDS ORDERED: LIPITOR20 MG PO (14:44)
[2017-01-08] MEDS ORDERED: CARVEDILOL25 MG PO (14:44)
[2017-01-08] MEDS ORDERED: HYDRALAZINE HCL50 MG PO (14:46)
[2017-01-08] MEDS ORDERED: ASPIRIN81 MG PO (14:47)
[2017-01-08] MEDS ORDERED: PROTONIX PO (14:48)
== END 2017-01-08 16:12 | disposition home or self-care (01) | DRG 381 ==
LOC: CED 23:27 → C3A PCU 01-05 08:25 → CEDOF 01-05 08:25 → CED 01-05 08:50 → CEDOF 01-05 08:50 → C3A PCU 01-05 20:25
PROVIDERS: Emergency Medicine; Internal Medicine; Internal Medicine Gastroenterology; Student in an Organized Health Care Education/Training Program
PROC: 0DB78ZX Excision of Stomach, Pylorus, Via Natural or Artificial Opening Endoscopic, Diagnostic (ICD-10-PCS; principal; 2017-01-05 18:06)
DX: K22.10 Ulcer of esophagus without bleeding (principal); J96.11 Chronic respiratory failure with hypoxia; R65.10 Systemic inflammatory response syndrome (SIRS) of non-infectious origin without acute organ dysfunction; I16.0 Hypertensive urgency; J44.9 Chronic obstructive pulmonary disease, unspecified; I44.7 Left bundle-branch block, unspecified; Z72.0 Tobacco use; I25.10 Atherosclerotic heart disease of native coronary artery without angina pectoris; Z79.82 Long term (current) use of aspirin; E78.5 Hyperlipidemia, unspecified; Z88.0 Allergy status to penicillin; E87.6 Hypokalemia; R91.1 Solitary pulmonary nodule; E66.9 Obesity, unspecified; E11.9 Type 2 diabetes mellitus without complications; K29.70 Gastritis, unspecified, without bleeding; J45.909 Unspecified asthma, uncomplicated; R00.0 Tachycardia, unspecified; Z68.35 Body mass index [BMI] 35.0-35.9, adult
CPT/HCPCS: 36415; 71010; 74176; 80048; 80076; 81003; 82150; 82553; 82947; 83690; 83735; 84484; 85025; 87077; 87086; 93005; 94640; 94760; 96361; 96374; 96375; 96376; 99284; C9113; J0360; J1200; J1815; J2270; J2405; J2550; J3475; J3490

== ENCOUNTER 2017-03-20 05:09 | Emergency (ER) | payer SELFPAY ==
--- NOTE | ~2017-03-20 | EKG ---
PATIENT: PITER DAVALOS UNIT #: [id number] Ventricular Rate: 72 BPM Atrial Rate: 72 BPM P-R Interval: 162 ms QRS Duration: 86 ms Q-T Interval: 394 ms QTC Calculation(Bezet): 431 ms P Lutts: 33 degrees Calculated T Lutts: -170 degrees Diagnosis Line: Normal sinus rhythm Diagnosis Line: Possible Left atrial enlargement Diagnosis Line: Left ventricular hypertrophy with repolarization Diagnosis Line: abnormality Diagnosis Line: Abnormal ECG Diagnosis Line: No previous ECGs available Diagnosis Line: Confirmed by BRYCE DAVEY MD ([id number]) on 03/21/2017 Diagnosis Line: 12:02:00 AM INTERPRETING MD: PETAR TRAN
--- NOTE | ~2017-03-20 | CT2 ---
[facility] A Service of [facility] & [facility] RADIOLOGY TEXT RESULTS PATIENT: PITER DAVALOS LOCATION: [facility] : [birth year] UNIT #: [id number] AGE: [address]: Mihir Negrete MD SEX: F ORDER DR: [id number] [facility] [address] [facility]. [place], [place] [address] [id number] MR#: [id number] Acc #: [id number] NAME: PITER DAVALOS : 1965 SEX: F STUDY DATE/TIME: 03/20/2017 8:17 UNIT: [facility] ROOM: STUDY DESCRIPTION: CT Abd and Pelv W Cont Attending Physician: Mihir Negrete M.D. Ordering Physician: Mihir Negrete M.D. Primary Care Physician: Brittney Jamison M.D. MEDICAL IMAGING REPORT This report is preliminary unless electronic signature is present EXAM CT abdomen and pelvis, 03/20. INDICATION Epigastric and upper abdominal pain with nausea and vomiting that started at 3 o'clock yesterday. Pain currently rates 10/10. TECHNIQUE Axial images were obtained through the abdomen and pelvis following IV contrast administration. Multiplanar reformats were obtained. This CT exam was performed with one or more of the following radiation dose reduction techniques: automatic exposure control, adjustment of mA and/or kV according to patient size, and iterative reconstruction. COMPARISON Comparison is made with 01/05/2017. FINDINGS ABDOMEN: Lung bases are clear. Gallbladder normal. No biliary obstruction. There is some mild fat stranding around the pancreas suggesting acute pancreatitis. Please correlate with laboratory data. Solid organs are otherwise unremarkable. Unopacified GI tract is normal. No free fluid is seen. There is some atherosclerotic disease in the aorta. PELVIS: Urinary bladder is normal. Solid pelvic organs are normal. The appendix is normal. The remainder of the unopacified GI tract is within normal limits, as well. No free fluid. IMPRESSION 1. Mild fat stranding adjacent to the pancreas would suggest mild acute pancreatitis. Correlate with laboratory data. 2. Normal unopacified GI tract, including the appendix. STS. [facility] A Service of [facility] & [facility] RADIOLOGY TEXT RESULTS PATIENT: PITER DAVALOS [facility] #: [id number] : [birth year] UNIT #: [id number] AGE: [address]: Mihir Negrete MD SEX: F ORDER DR: Dictated by... Bony Pagan Jr., M.D. THIS IS AN ELECTRONICALLY VERIFIED REPORT Bony Pagan Jr., M.D. at 03/20/2017 5:11 PM SHAINA/padmini TD: 03/20/2017 14:11 JOB #: [id number] MEDICAL IMAGING REPORT Page 1 of 1 COPY
[~2017-03-20 05:09] MED LIST changes: +DOCUSATE SODIU100 MG PO; +OMEPRAZOLE20 M2 PO; +PROTONIX PO
[2017-03-20 06:44] LABS: URINE SOURCE CLEAN CATCH
[2017-03-20 06:53] LABS: URINE APPEARANCE CLEAR; URINE BILIRUBIN NEG (NEG); URINE BLOOD NEG (NEG); URINE COLOR DK YELLOW; URINE GLUCOSE 250 MG/DL (NEG); URINE KETONE NEG (NEG); URINE LEUKOCYTE ESTERASE NEG (NEG); URINE NITRATE NEG (NEG); URINE PROTEIN 2+ (NEG); URINE SPECIFIC GRAVITY 1.015 (1.003-1.035)
[2017-03-20 06:56] LABS: U HYALINE CASTS AUWI 0-2 /[LPF]; URINE BACTERIA AUWI NEG (NEGATIVE); URINE SQUAMOUS EPITHELIAL CELL OCC /[HPF]
[2017-03-20 06:57] LABS: BASOPHIL# 0.1 X10e3 (0-0.3); BASOPHIL% 0.6 % (0-2.5); EOSINOPHIL# 0.1 X10e3 (0-0.7); EOSINOPHIL% 0.9 % (0.0-7.0); HEMATOCRIT 40.8 % (35.0-45.0); HEMOGLOBIN 13.9 gm/dL (12.0-16.0); LYMPHOCYTE# 3.6 X10e3 (1.0-3.5); LYMPHOCYTE% 34.2 % (17.0-45.0); MEAN CELL VOLUME 83.7 FL (83-96); MEAN CORPUSCULAR HEMOGLOBIN 28.4 PG (28-34); MEAN PLATELET VOLUME 8.9 FL (6.5-11.5); MONOCYTE# 0.5 X10e3 (0-1.0); MONOCYTE% 4.7 % (3.0-12.0); NEUTROPHIL# 6.3 X10e3 (1.5-7.1); NEUTROPHIL% 59.6 % (40-75); PLATELET COUNT 277 X10e3 (140-420); RED BLOOD COUNT 4.87 X10e (3.90-5.30); WHITE BLOOD COUNT 10.6 X10e3 (4.0-10.5)
[2017-03-20 06:58] LABS: CULTURE INDICATED? NO
[2017-03-20 07:03] LABS: DIFF IND NO
[2017-03-20 07:13] LABS: POC - CKMB 1.1 ng/mL (0.0-7.9); POC - TROPONIN <0.05 ng/mL (<=0.05)
[2017-03-20 07:37] LABS: ALBUMIN SERUM 3.5 g/dL (3.5-5.0); ALKALINE PHOSPHATASE 82 U/L (32-92); ALT (SGPT) 18 U/L (10-40); AST (SGOT) 14 U/L (10-42); BILIRUBIN,TOTAL 0.4 mg/dL (0.2-2.0); BLOOD UREA NITROGEN 6 mg/dL (9-23); BUN/CREATININE RATIO 8.57; CALCIUM SERUM 9.3 mg/dL (8.4-10.2); CARBON DIOXIDE 30 mmol/L (22-31); CHLORIDE 104 mmol/L (100-111); CREATININE SERUM 0.7 mg/dL (0.6-1.4); GLOM FILT RATE Estimated 99.6 mL/min (>60); GLUCOSE FASTING 137 mg/dL (70-110); LIPASE 44 U/L (22-51); POTASSIUM 3.2 mmol/L (3.5-5.1); PROTEIN TOTAL SERUM 7.1 g/dL (6.0-8.3); SODIUM 140 mmol/L (135-145)
[2017-03-20 07:38] LABS: BILIRUBIN, DIRECT <0.1 mg/dL (0.0-0.2); BILIRUBIN,INDIRECT 0.3 mg/dL (0.0-0.9)
[2017-03-20 09:28] LABS: POC - CKMB <1.0 ng/mL (0.0-7.9); POC - TROPONIN <0.05 ng/mL (<=0.05)
== END 2017-03-20 09:56 | disposition home or self-care (01) ==
LOC: CED 05:09
PROVIDERS: Emergency Medicine
DX: R10.10 Upper abdominal pain, unspecified (principal); F17.200 Nicotine dependence, unspecified, uncomplicated; I10 Essential (primary) hypertension; E11.9 Type 2 diabetes mellitus without complications; Z88.0 Allergy status to penicillin
CPT/HCPCS: 36415; 74177; 80048; 80076; 81003; 82553; 83690; 84484; 85025; 93005; 96361; 96374; 96375; 99284; C9113; J2405; Q9967

== ENCOUNTER 2017-04-27 03:43 | Emergency (ER) | payer MEDICAID ==
[~2017-04-27] VITALS: Ht 160 cm; Wt 81.2 kg
--- NOTE | ~2017-04-27 | CT2 ---
[facility] A Service of [facility] & [facility] RADIOLOGY TEXT RESULTS PATIENT: JOANNA DAVALOS LOCATION: [facility] : 63 UNIT #: [id number] AGE: [address]: Haseeb Humphreys MD SEX: F ORDER DR: [id number] [address] [address] [id number] E MR#: [id number] Acc #: [id number] NAME: JOANNA DAVALOS : 1965 SEX: F STUDY DATE/TIME: 04/27/2017 05:25 UNIT: [facility] ROOM: STUDY DESCRIPTION: CT Abd and Pelv W Cont Attending Physician: Haseeb Humphreys M.D. Ordering Physician: Beverly Westfall M.D. Primary Care Physician: Brittney Jamison M.D. MEDICAL IMAGING REPORT This report is preliminary unless electronic signature is present. EXAM CT abdomen and pelvis 04/27 at 05:25 INDICATION Epigastric pain, chest pain and nausea, shortness of air that started this morning. TECHNIQUE Axial images were obtained through the abdomen and pelvis following IV contrast administration. Multiplanar reformats were obtained. Comparison made with 03/20/2017. This CT examination was performed with one or more of the following radiation dose reduction techniques: automatic exposure control, adjustment of mA and/or kV according to patient size, and iterative reconstruction. FINDINGS ABDOMEN: Lung bases are clear except for some mild atelectasis in the lower lobes. Gallbladder is unremarkable. No biliary obstruction. There is generalized fat stranding around the pancreas compatible with acute pancreatitis. This has increased over the prior study. No fluid collections are seen. The pancreas enhances normally. No evidence of pancreatic necrosis. The solid organs are otherwise normal. There is no adenopathy. There is some atherosclerotic disease in the aorta. Unopacified GI tract is normal. PELVIS: The appendix is normal. The remainder of the unopacified lower GI tract is normal as well. Solid pelvic organs are normal. Urinary bladder is normal. IMPRESSION 1. Mild uncomplicated acute pancreatitis. 2. The remainder of the abdomen and pelvis CT is negative. [facility] A Service of [facility] & [facility] RADIOLOGY TEXT RESULTS PATIENT: JOANNA DAVALOS LOCATION: [facility] : 63 UNIT #: [id number] AGE: [address]: Haseeb Humphreys MD SEX: F ORDER DR: Dictated by... Bony Pagan Jr., M.D. THIS IS AN ELECTRONICALLY VERIFIED REPORT Bony Pagan Jr., M.D. at 04/30/2017 7:14 AM SHAINA/bertha TD: 04/27/2017 10:24 JOB #: [id number] MEDICAL IMAGING REPORT Page 1 of 1
--- NOTE | ~2017-04-27 | EKG ---
PATIENT: JOANNA DAVALOS UNIT #: [id number] Ventricular Rate: 80 BPM Atrial Rate: 80 BPM P-R Interval: 164 ms QRS Duration: 96 ms Q-T Interval: 410 ms QTC Calculation(Bezet): 472 ms P [place]: 43 degrees Calculated R [place]: 4 degrees Calculated T [place]: 157 degrees Diagnosis Line: Normal sinus rhythm Diagnosis Line: Possible Left atrial enlargement Diagnosis Line: Left ventricular hypertrophy with repolarization Diagnosis Line: abnormality Diagnosis Line: Cannot rule out Septal infarct , age undetermined Diagnosis Line: Abnormal ECG Diagnosis Line: When compared with ECG of 20-MAR-2017 06:34, Diagnosis Line: Minimal criteria for Septal infarct are now Diagnosis Line: Present Diagnosis Line: Non-specific change in ST segment in Anterior Diagnosis Line: leads Diagnosis Line: Nonspecific T wave abnormality has replaced Diagnosis Line: inverted T waves in Inferior leads Diagnosis Line: T wave inversion no longer evident in Anterior Diagnosis Line: leads Diagnosis Line: Confirmed by ONI VILLARRAEL MD ([id number]) on Diagnosis Line: 04/30/2017 8:00:56 AM INTERPRETING MD: CHERELLE TRAN
--- NOTE | ~2017-04-27 | CR72 ---
[facility]. [facility] A Service of [facility] & [facility] RADIOLOGY TEXT RESULTS PATIENT: JOANNA DAVALOS LOCATION: SED : 63 UNIT #: [id number] AGE: [address]: Haseeb Humphreys MD SEX: F ORDER DR: [id number] [place] [id number] MR#: [id number] Acc #: [id number] NAME: JOANNA DAVALOS : 1965 SEX: F STUDY DATE/TIME: 04/27/2017 04:42 UNIT: SED ROOM: STUDY DESCRIPTION: CR Chest Single View Portable Attending Physician: Haseeb Humphreys M.D. Ordering Physician: Beverly Westfall M.D. Primary Care Physician: Brittney Jamison M.D. MEDICAL IMAGING REPORT This report is preliminary unless electronic signature is present. EXAM Portable chest, 04/27 at 04:42 INDICATION Chest and epigastric pain with shortness of air that started this morning. FINDINGS AP portable chest is compared with 01/05/2017. Heart is quite enlarged. Lung volumes are lower and there is some mild infiltrate or atelectasis in the bases. No pneumothorax. IMPRESSION Stable cardiomegaly with low volume inspiration. Mild infiltrate or atelectasis noted in both bases. Dictated by... Bony Pagan Jr., M.D. THIS IS AN ELECTRONICALLY VERIFIED REPORT Bony Pagan Jr., M.D. at 04/30/2017 7:14 AM SHAINA/marcella TD: 04/27/2017 10:19 JOB #: [id number] MEDICAL IMAGING REPORT Page 1 of 1
[2017-04-27 04:20] LABS: BASOPHIL# 0.1 X10e3 (0-0.3); BASOPHIL% 0.5 % (0-2.5); DIFF IND NO; EOSINOPHIL# 0.2 X10e3 (0-0.7); EOSINOPHIL% 1.5 % (0.0-7.0); HEMATOCRIT 41.1 % (35.0-45.0); HEMOGLOBIN 14.2 gm/dL (12.0-16.0); LYMPHOCYTE# 3.8 X10e3 (1.0-3.5); LYMPHOCYTE% 32.6 % (17.0-45.0); MEAN CELL VOLUME 82.6 FL (83-96); MEAN CORPUSCULAR HEMOGLOBIN 28.6 PG (28-34); MEAN CORPUSCULAR HGB CONC 34.6 g/dL (30-36); MEAN PLATELET VOLUME 9.3 FL (6.5-11.5); MONOCYTE# 0.6 X10e3 (0-1.0); NEUTROPHIL# 7.1 X10e3 (1.5-7.1); NEUTROPHIL% 60.4 % (40-75); PLATELET COUNT 291 X10e3 (140-420); RED BLOOD COUNT 4.98 X10e (3.90-5.30); RED CELL DISTRIBUTION WIDTH 13.8 % (11.0-15.5); WHITE BLOOD COUNT 11.7 X10e3 (4.0-10.5)
[2017-04-27 04:33] LABS: INR 1.1; PROTHROMBIN TIME (PATIENT) 12.7 SECONDS (9.5-12.4)
[2017-04-27 04:35] LABS: POC - CKMB <1.0 ng/mL (0.0-7.9); POC - MYOGLOBIN 70.9 ng/mL (0.0-169.0); POC - TROPONIN <0.05 ng/mL (<=0.05)
[2017-04-27 04:40] LABS: PARTIAL THROMBOPLASTIN TIME 30.5 SECONDS (25.6-38.1)
[2017-04-27 04:51] LABS: ALBUMIN SERUM 3.8 g/dL (3.5-5.0); BILIRUBIN, DIRECT 0.1 mg/dL (0.0-0.2); BILIRUBIN,INDIRECT 0.2 mg/dL (0.0-0.9); BILIRUBIN,TOTAL 0.3 mg/dL (0.2-2.0); BUN/CREATININE RATIO 11.25; CALCIUM SERUM 9.1 mg/dL (8.4-10.2); CREATININE SERUM 0.8 mg/dL (0.6-1.4); GLOM FILT RATE Estimated 84.8 mL/min (>60); MAGNESIUM 1.8 mg/dL (1.6-3.0); PROTEIN TOTAL SERUM 7.4 g/dL (6.0-8.3)
[2017-04-27 04:55] LABS: POTASSIUM 2.8 mmol/L (3.5-5.1)
[2017-04-27 05:55] LABS: URINE SOURCE CLEAN CATCH
[2017-04-27 05:57] LABS: URINE APPEARANCE CLEAR; URINE BILIRUBIN NEG (NEG); URINE BLOOD NEG (NEG); URINE COLOR YELLOW; URINE GLUCOSE NEG (NORM); URINE KETONE NEG (NEG); URINE LEUKOCYTE ESTERASE NEG (NEG); URINE NITRATE NEG (NEG); URINE PROTEIN NEG (NEG); URINE UROBILINOGEN 0.2 MG/DL (NORM)
[2017-04-27 05:59] LABS: MICRO INDICATED? NO
[2017-04-27 06:06] LABS: POC - CKMB <1.0 ng/mL (0.0-7.9); POC - MYOGLOBIN 47.4 ng/mL (0.0-169.0); POC - TROPONIN <0.05 ng/mL (<=0.05)
== END 2017-04-27 08:43 ==
LOC: SED 03:43
PROVIDERS: Student in an Organized Health Care Education/Training Program
DX: K85.90 Acute pancreatitis without necrosis or infection, unspecified (principal); E87.6 Hypokalemia; I16.0 Hypertensive urgency; I10 Essential (primary) hypertension; R07.9 Chest pain, unspecified; F17.200 Nicotine dependence, unspecified, uncomplicated; Z88.0 Allergy status to penicillin; K27.9 Peptic ulcer, site unspecified, unspecified as acute or chronic, without hemorrhage or perforation; Z86.79 Personal history of other diseases of the circulatory system; Z79.899 Other long term (current) drug therapy; Z79.82 Long term (current) use of aspirin
CPT/HCPCS: 36415; 71010; 74177; 80048; 80076; 81003; 82553; 83690; 83735; 83874; 83880; 84484; 85025; 85610; 85730; 93005; 96374; 96375; 96376; 99291; C9113; J0360; J2270; J2405; J2550; Q9967